=== PATIENT | female | born 1975 | race African-American/Black ===

== ENCOUNTER 2020-10-26 22:31 | Emergency (ER) | payer BC, OTHER ==
[~2020-10-26] VITALS: Ht 167.6 cm; Wt 117.9 kg
[~2020-10-26 22:31] MED LIST: IRON SUPPLEMENT
[2020-10-27 00:37] VITALS: BP 173/99
== END 2020-10-27 00:37 | disposition home or self-care (01) ==
LOC: FSED 10-27 00:12
DX: U07.1 COVID-19 (principal); J12.82 Pneumonia due to coronavirus disease 2019
CPT/HCPCS: 71046; 99283